=== PATIENT | male | born 1935 | race Caucasian/White ===

== ENCOUNTER → 2016-09-03 | Outpatient (CLI) | payer OTHER ==
[2016-09-03 08:48] LABS: HEMATOCRIT 38.5 % (42-52); MEAN CELL VOLUME 89.5 fL (80-100); MEAN CORPUSCULAR HEMOGLOBIN 30.2 pg (25-34); MEAN CORPUSCULAR HGB CONC 33.8 g/dl (32-36); MEAN PLATELET VOLUME 10.9 fL (7.4-10.4); PLATELET COUNT 245 K/uL (130-400); WHITE BLOOD COUNT 7.42 K/uL (4.8-10.8)
[2016-09-03 08:55] LABS: BLOOD UREA NITROGEN 38 mg/dl (7-18); BUN/CREATININE RATIO 17.9 (10-20); CALCIUM 8.7 mg/dl (8.5-10.1); CARBON DIOXIDE 23 mmol/L (21-32); CHLORIDE 111 mmol/L (98-107); CHOLESTEROL 163 mg/dl (0-200); GLUCOSE 162 mg/dl (70-99); POTASSIUM 4.5 mmol/L (3.5-5.1); SODIUM 144 mmol/L (136-145)
[2016-09-03 09:00] LABS: HDL CHOLESTEROL 54 mg/dl; LDL CHOLESTEROL CALCULATED 93 mg/dl; PHOSPHORUS 2.9 mg/dl (2.5-4.9); TRIGLYCERIDES 81 mg/dl (0-150); VERY LOW DENSITY LIPOPROT CALC 16 mg/dl
[2016-09-03 09:06] LABS: ESTIMATED AVERAGE GLUCOSE 174 mg/dl; HA1C FLAG Normal (Normal)
== END | disposition home or self-care (01) ==
LOC: C.LABFOXMH 08:23
PROVIDERS: ATTEND Internal Medicine
DX: E11.22 Type 2 diabetes mellitus with diabetic chronic kidney disease (principal); N18.3 Chronic kidney disease, stage 3 (moderate)

== ENCOUNTER → 2016-10-08 | Outpatient (CLI) | payer OTHER ==
[2016-10-08 11:27] LABS: PATIENT HEIGHT 172.7 cm
[2016-10-08 12:28] LABS: HEMATOCRIT 37.4 % (42-52); MEAN CELL VOLUME 90.1 fL (80-100); MEAN CORPUSCULAR HEMOGLOBIN 29.6 pg (25-34); MEAN CORPUSCULAR HGB CONC 32.9 g/dl (32-36); MEAN PLATELET VOLUME 10.6 fL (7.4-10.4); PLATELET COUNT 242 K/uL (130-400); RED BLOOD COUNT 4.15 M/uL (4.7-6.1); WHITE BLOOD COUNT 5.96 K/uL (4.8-10.8)
[2016-10-08 12:36] LABS: URINE APPEARANCE CLEAR (CLEAR); URINE BILIRUBIN NEG (NEG); URINE COLOR YELLOW; URINE EPITHELIAL CELL AUTO 0-5 /lpf (0-5); URINE NITRITE NEG (NEG); URINE SPECIFIC GRAVITY 1.019 (1.000-1.030); UROBILINOGEN NEG (NEG)
[2016-10-08 12:40] LABS: MANUAL MICROSCOPIC REQUIRED? NO; REVIEW REQ? NO
[2016-10-08 13:04] LABS: BUN/CREATININE RATIO 15.7 (10-20); CALCIUM 8.8 mg/dl (8.5-10.1); CREATININE 1.6 mg/dl (0.60-1.40); POTASSIUM 4.5 mmol/L (3.5-5.1)
[2016-10-08 13:07] LABS: URINE PROTIEN/CREAT RATIO 0.1 (0-0.2); URINE TOTAL PROTEIN 10.5 mg/dl (0-11.9)
[2016-10-09 08:49] LABS: URINE TOTAL PROTEIN 10.5 mg/dl (0-11.9)
[2016-10-09 09:07] LABS: CREATININE 1.6 mg/dl (0.6-1.4)
== END | disposition home or self-care (01) ==
LOC: C.LAB1850 11:19
PROVIDERS: ATTEND Internal Medicine Nephrology
DX: I12.9 Hypertensive chronic kidney disease with stage 1 through stage 4 chronic kidney disease, or unspecified chronic kidney disease (principal); N18.9 Chronic kidney disease, unspecified; E55.9 Vitamin D deficiency, unspecified; E21.3 Hyperparathyroidism, unspecified

== ENCOUNTER → 2016-10-10 | Outpatient (CLI) | payer OTHER ==
--- NOTE | 2016-10-10 10:16 | DIAGNOSTIC IMAGING REPORT ---
RENAL ULTRASOUND HISTORY: Hypertension I10 [id number] Chronic kidney [id number] Vitamin D defib COMPARISON: None. FINDINGS: Right kidney: Maximum dimension 10.7 cm. No evidence for hydronephrosis. Several small cysts measuring up to 1.5 cm. Moderate cortical scarring and cortical thinning Left kidney: Maximum dimension 10.6 cm. No evidence for hydronephrosis. Several small cysts. Moderate cortical scarring and increased cortical echogenicity Bladder: No bladder wall thickening. The bilateral ureteral jets were identified. IMPRESSION: 1. Several small renal cysts bilaterally. 2. No evidence for hydronephrosis. 3. Cortical scarring and increased cortical echogenicity consistent with chronic nonobstructive renal insufficiency. Electronically signed by: Jered Clifford M.D. 10/10/2016 10:15 AM Dictated Date/Time: 10/10/2016 10:13 AM
--- NOTE | 2016-10-10 10:22 | DIAGNOSTIC IMAGING REPORT ---
DUPLEX RENAL ARTERY CLINICAL HISTORY: Hypertension. Chronic kidney disease. COMPARISON STUDY: Renal ultrasound with Doppler November 13, 2010. FINDINGS: The grayscale exam will be reported separately. There is increased renal echogenicity and renal cortical thinning. There is no hydronephrosis. The peak systolic velocity within the abdominal aorta was 77 cm/s. The peak systolic velocity within the right renal artery was 89 cm/s and the peak systolic velocity within the left renal artery was 62 cm/s. Both renal veins were patent. Systolic upstrokes within the segmental vessels of both kidneys were normal. IMPRESSION: No sonographic evidence of renal artery stenosis. Electronically signed by: Durga Kevin M.D. 10/10/2016 10:20 AM Dictated Date/Time: 10/10/2016 10:18 AM
== END | disposition home or self-care (01) ==
LOC: C.ULTR 09:09
PROVIDERS: ATTEND Internal Medicine Nephrology
DX: E21.3 Hyperparathyroidism, unspecified (principal); E55.9 Vitamin D deficiency, unspecified; I12.9 Hypertensive chronic kidney disease with stage 1 through stage 4 chronic kidney disease, or unspecified chronic kidney disease; N18.9 Chronic kidney disease, unspecified

== ENCOUNTER → 2016-10-16 | Outpatient (CLI) | payer OTHER ==
--- NOTE | 2016-10-16 17:10 | ECHOCARDIOGRAM REPORT ---
*NOTICE TO RECEIVING DEMOCRAT AGENCY This information is strictly Confidential and protected under [place] law. [place] law prohibits you from making any further disclosure of this information unless further disclosure is expressly permitted by the written consent of the person to whom it pertains or is authorized by law. A general authorization for the release of medical or other information is not sufficient for this purpose. Hospital accepts no responsibility if the information is made available to any other person, INCLUDING THE PATIENT. Interpretation Summary * Name: ROBERTA LYON Study Date: 10/16/2016 12:55 PM BP: 131/52 mmHg * Patient Location: [facility] HR: 77 * : 1935 (M/d/yyyy) Gender: Male Height: 68 in * Age: 81 yrs Ethnicity: [place] Weight: 173 lb * Ordering Physician: Darell Gonzalez MD * Performed By: Marbella Harper RDCS * * Reason For Study: Systolic murmur * BSA: 1.9 m2 * -- Conclusions -- * 1. Normal left ventricular size with hyperdynamic systolic function. EF > 70%. Mild concentric left ventricular hypertrophy with severe hypertrophy of the anteroseptal base. Type I diastolic dysfunction. * 2. The left atrium is mildly dilated. * 3. Aortic valve sclerosis moderate, without significant aortic valvular stenosis. * 4. Normal estimated right ventricular systolic pressure; RVSP 26 mmHg. * 5. No significant change from prior study on 07/04/2011. Procedure Details * A complete two-dimensional transthoracic echocardiogram was performed (2D, M-mode, Doppler and color flow Doppler). Left Ventricle * Normal left ventricular size with hyperdynamic systolic function. EF > 70%. Mild concentric left ventricular hypertrophy with severe hypertrophy of the anteroseptal base. Type I diastolic dysfunction. Right Ventricle * The right ventricle is normal in size and function. * The right ventricular systolic function is normal as assessed by tricuspid annular plane systolic excursion (TAPSE) (normal >1.5 cm). Atria * The left atrium is mildly dilated. * Right atrial size is normal. * There is no evidence of atrial septal defect, but resolution does not allow assessment for a patent foramen ovale. Mitral Valve * There is mild mitral annular calcification. * There is no mitral valve stenosis. * There is trace mitral regurgitation. Tricuspid Valve * The tricuspid valve is not well visualized, but is grossly normal. * There is no tricuspid stenosis. * There is trace tricuspid regurgitation. Aortic Valve * The aortic valve is trileaflet. * Aortic valve sclerosis moderate, without significant aortic valvular stenosis. * No hemodynamically significant valvular aortic stenosis. * There is no significant aortic regurgitation. Pulmonic Valve * The pulmonary valve is inadequately visualized, but the Doppler data is adequate for interpretation. * There is no pulmonic valvular stenosis. * There is no significant pulmonary regurgitation. Great Vessels * The aortic root is normal size. * Aortic arch of normal dimension. * Normal pulmonary venous flow pattern. Pericardium/Pleural * There is no pericardial effusion. Great Vessels * Normal IVC size. MMode 2D Measurements and Calculations IVSd 1.6 cm LVIDd 3.8 cm LVIDs 2.0 cm LVPWd 1.2 cm IVS/LVPW 1.3 FS 47.8 % EDV(Teich) 61.1 ml ESV(Teich) 12.3 ml EF(Teich) 79.9 % EDV(cubed) 53.9 ml ESV(cubed) 7.7 ml EF(cubed) 85.8 % LV mass(C)d 191.4 grams LV mass(C)dI 99.6 grams/m\S\2 CO(Teich) 3.4 l/min CI(Teich) 1.8 l/min/m\S\2 SV(Teich) 48.8 ml SI(Teich) 25.4 ml/m\S\2 CO(cubed) 3.2 l/min CI(cubed) 1.7 l/min/m\S\2 SV(cubed) 46.3 ml SI(cubed) 24.1 ml/m\S\2 Ao root diam 3.4 cm Ao root area 9.1 cm\S\2 ACS 1.3 cm LA dimension 3.4 cm asc Aorta Diam 3.5 cm LA/Ao 1.0 LVOT diam 2.0 cm LVOT area 3.0 cm\S\2 LVAd ap4 24.8 cm\S\2 LVLd ap4 7.5 cm EDV(MOD-sp4) 66.1 ml LVAs ap4 12.0 cm\S\2 LVLs ap4 5.7 cm ESV(MOD-sp4) 20.9 ml EF(MOD-sp4) 68.4 % LVAd ap2 22.4 cm\S\2 LVLd ap2 7.7 cm EDV(MOD-sp2) 54.3 ml LVAs ap2 10.5 cm\S\2 LVLs ap2 6.3 cm ESV(MOD-sp2) 14.3 ml EF(MOD-sp2) 73.7 % CO(MOD-sp4) 3.1 l/min CI(MOD-sp4) 1.6 l/min/m\S\2 SV(MOD-sp4) 45.2 ml SI(MOD-sp4) 23.5 ml/m\S\2 CO(MOD-sp2) 2.8 l/min CI(MOD-sp2) 1.4 l/min/m\S\2 SV(MOD-sp2) 40.0 ml SI(MOD-sp2) 20.8 ml/m\S\2 Doppler Measurements and Calculations MV E max anjelica 76.6 cm/sec MV A max anjelica 82.0 cm/sec MV E/A 0.93 MV dec time 0.23 sec Ao V2 max 129.4 cm/sec Ao max PG 6.7 mmHg Ao max PG (full) 3.1 mmHg ANDI(V,A) 2.2 cm\S\2 ANDI(V,D) 2.2 cm\S\2 LV V1 max PG 3.6 mmHg LV V1 max 95.1 cm/sec MR max anjelica 434.4 cm/sec MR max PG 75.5 mmHg MR mean anjelica 361.6 cm/sec MR mean PG 56.4 mmHg MR VTI 112.1 cm TV E max anjelica 45.6 cm/sec PA V2 max 81.4 cm/sec PA max PG 2.7 mmHg PA acc slope 721.6 cm/sec\S\2 PA acc time 0.07 sec TR max anjelica 237.5 cm/sec RVSP(TR) 25.6 mmHg RAP systole 3.0 mmHg PA pr(Accel) 45.7 mmHg
== END | disposition home or self-care (01) ==
LOC: C.CPL 12:46
PROVIDERS: ATTEND Internal Medicine
DX: R01.1 Cardiac murmur, unspecified (principal)

== ENCOUNTER → 2016-11-26 | Outpatient (CLI) | payer OTHER ==
[2016-11-26 08:44] LABS: BLOOD UREA NITROGEN 36 mg/dl (7-18); BUN/CREATININE RATIO 21.2 (10-20); CARBON DIOXIDE 26 mmol/L (21-32); CHLORIDE 111 mmol/L (98-107); GLUCOSE 140 mg/dl (70-99); POTASSIUM 4.2 mmol/L (3.5-5.1); SODIUM 144 mmol/L (136-145)
[2016-11-26 08:50] LABS: CALCIUM 8.5 mg/dl (8.5-10.1)
[2016-11-26 10:10] LABS: ESTIMATED AVERAGE GLUCOSE 171 mg/dl; HA1C FLAG Normal (Normal)
== END ==
LOC: C.LABFOXMH 08:15
PROVIDERS: ATTEND Internal Medicine
DX: E11.9 Type 2 diabetes mellitus without complications (principal)

== ENCOUNTER → 2017-03-06 | Outpatient (CLI) | payer OTHER ==
[2017-03-06 09:01] LABS: HEMATOCRIT 40.4 % (42-52); MEAN CELL VOLUME 92.4 fL (80-100); MEAN CORPUSCULAR HEMOGLOBIN 29.5 pg (25-34); MEAN CORPUSCULAR HGB CONC 31.9 g/dl (32-36); MEAN PLATELET VOLUME 10.5 fL (7.4-10.4); PLATELET COUNT 254 K/uL (130-400); RED BLOOD COUNT 4.37 M/uL (4.7-6.1); WHITE BLOOD COUNT 6.75 K/uL (4.8-10.8)
[2017-03-06 09:07] LABS: BLOOD UREA NITROGEN 32 mg/dl (7-18); BUN/CREATININE RATIO 17.8 (10-20); CALCIUM 8.9 mg/dl (8.5-10.1); CARBON DIOXIDE 26 mmol/L (21-32); CHLORIDE 113 mmol/L (98-107); GLUCOSE 109 mg/dl (70-99); POTASSIUM 4.4 mmol/L (3.5-5.1); SODIUM 145 mmol/L (136-145)
[2017-03-06 09:16] LABS: ESTIMATED AVERAGE GLUCOSE 169 mg/dl; HA1C FLAG Normal (Normal)
[2017-03-06 09:18] LABS: PHOSPHORUS 2.7 mg/dl (2.5-4.9); THYROID STIMULATING HORMONE 0.334 uIu/ml (0.300-4.500)
== END ==
LOC: C.LABFOXMH 08:48
PROVIDERS: ATTEND Internal Medicine
DX: N18.3 Chronic kidney disease, stage 3 (moderate) (principal); E01.8 Other iodine-deficiency related thyroid disorders and allied conditions; E11.9 Type 2 diabetes mellitus without complications

== ENCOUNTER → 2017-06-22 | Outpatient (CLI) | payer OTHER ==
[2017-06-22 09:29] LABS: HEMATOCRIT 38.4 % (42-52); MEAN CELL VOLUME 91.9 fL (80-100); MEAN CORPUSCULAR HEMOGLOBIN 30.4 pg (25-34); MEAN CORPUSCULAR HGB CONC 33.1 g/dl (32-36); MEAN PLATELET VOLUME 11.4 fL (7.4-10.4); PLATELET COUNT 216 K/uL (130-400); RED BLOOD COUNT 4.18 M/uL (4.7-6.1); WHITE BLOOD COUNT 7.72 K/uL (4.8-10.8)
[2017-06-22 09:46] LABS: FERRITIN 60.1 ng/ml (8.0-388.0); THYROID STIMULATING HORMONE 0.275 uIu/ml (0.300-4.500)
== END | disposition home or self-care (01) ==
LOC: C.LABFOXMH 08:48
PROVIDERS: ATTEND Internal Medicine Hospice and Palliative Medicine
DX: D64.9 Anemia, unspecified (principal); E03.9 Hypothyroidism, unspecified

== ENCOUNTER → 2017-06-29 | Outpatient (CLI) | payer OTHER ==
[2017-06-29 09:43] LABS: TOTAL IRON BINDING CAPACITY 225 mcg/dl (250-450)
[2017-06-29 09:46] LABS: ESTIMATED AVERAGE GLUCOSE 180 mg/dl; HA1C FLAG Normal (Normal)
== END | disposition home or self-care (01) ==
LOC: C.LABFOXMH 08:58
PROVIDERS: ATTEND Internal Medicine
DX: E11.22 Type 2 diabetes mellitus with diabetic chronic kidney disease (principal); N18.3 Chronic kidney disease, stage 3 (moderate); D64.9 Anemia, unspecified

== ENCOUNTER → 2017-10-23 | Outpatient (CLI) | payer OTHER ==
[2017-10-23 08:43] LABS: HEMATOCRIT 38.6 % (42-52); HEMOGLOBIN 12.7 g/dL (14.0-18.0); MEAN CELL VOLUME 91.9 fL (80-100); MEAN CORPUSCULAR HEMOGLOBIN 30.2 pg (25-34); MEAN CORPUSCULAR HGB CONC 32.9 g/dl (32-36); PLATELET COUNT 226 K/uL (130-400); RED CELL DISTRIBUTION WIDTH CV 13.7 % (11.5-14.5); RED CELL DISTRIBUTION WIDTH SD 45.9 fL (36.4-46.3); WHITE BLOOD COUNT 6.82 K/uL (4.8-10.8)
[2017-10-23 08:50] LABS: ALBUMIN 3.5 gm/dl (3.4-5.0); BLOOD UREA NITROGEN 31 mg/dl (7-18); CALCIUM 8.4 mg/dl (8.5-10.1); CARBON DIOXIDE 23 mmol/L (21-32); CHOLESTEROL 153 mg/dl (0-200); CREATININE 1.67 mg/dl (0.60-1.40); GLUCOSE 96 mg/dl (70-99); POTASSIUM 4.2 mmol/L (3.5-5.1); SODIUM 142 mmol/L (136-145)
[2017-10-23 08:53] LABS: LDL CHOLESTEROL CALCULATED 77 mg/dl; PHOSPHORUS 3.1 mg/dl (2.5-4.9)
[2017-10-23 08:55] LABS: HEMOGLOBIN A1C 7.8 % (4.5-5.6)
== END | disposition home or self-care (01) ==
LOC: C.LABFOXMH 08:28
PROVIDERS: ATTEND Internal Medicine
DX: E11.9 Type 2 diabetes mellitus without complications (principal); N18.3 Chronic kidney disease, stage 3 (moderate); E03.9 Hypothyroidism, unspecified; E78.00 Pure hypercholesterolemia, unspecified

== ENCOUNTER → 2018-02-26 | Outpatient (CLI) | payer OTHER ==
[2018-02-26 09:43] LABS: HEMATOCRIT 38.6 % (42-52); HEMOGLOBIN 12.7 g/dL (14.0-18.0); MEAN CELL VOLUME 92.6 fL (80-100); MEAN CORPUSCULAR HEMOGLOBIN 30.5 pg (25-34); MEAN CORPUSCULAR HGB CONC 32.9 g/dl (32-36); PLATELET COUNT 209 K/uL (130-400); RED CELL DISTRIBUTION WIDTH CV 14.3 % (11.5-14.5); RED CELL DISTRIBUTION WIDTH SD 48.5 fL (36.4-46.3); WHITE BLOOD COUNT 7.35 K/uL (4.8-10.8)
[2018-02-26 09:52] LABS: ALBUMIN 3.3 gm/dl (3.4-5.0); BLOOD UREA NITROGEN 30 mg/dl (7-18); CALCIUM 8.3 mg/dl (8.5-10.1); CARBON DIOXIDE 25 mmol/L (21-32); CREATININE 1.77 mg/dl (0.60-1.40); GLUCOSE 119 mg/dl (70-99); PHOSPHORUS 2.6 mg/dl (2.5-4.9); POTASSIUM 4.6 mmol/L (3.5-5.1); SODIUM 140 mmol/L (136-145)
[2018-02-26 10:08] LABS: HEMOGLOBIN A1C 7.9 % (4.5-5.6)
== END | disposition home or self-care (01) ==
LOC: C.LABFOXMH 09:03
PROVIDERS: ATTEND Internal Medicine
DX: N18.3 Chronic kidney disease, stage 3 (moderate) (principal); E11.9 Type 2 diabetes mellitus without complications